=== PATIENT | male | born 1965 | race Caucasian/White ===

== ENCOUNTER 2018-07-23 09:15 | Emergency (ER) | payer MEDICAID ==
[~2018-07-23] VITALS: Ht 185.4 cm; Wt 81.6 kg
[2018-07-23 09:30] VITALS: BP 148/81
== END 2018-07-23 11:06 | disposition home or self-care (01) ==
LOC: ER 09:18
DX: S20.212A Contusion of left front wall of thorax, initial encounter (principal); I10 Essential (primary) hypertension; F17.200 Nicotine dependence, unspecified, uncomplicated; Z90.49 Acquired absence of other specified parts of digestive tract; W11.XXXA Fall on and from ladder, initial encounter; Y93.89 Activity, other specified; Y92.89 Other specified places as the place of occurrence of the external cause; Y99.8 Other external cause status
CPT/HCPCS: 71100; 99283; A4606; Z7610

== ENCOUNTER 2018-09-21 12:59 | Emergency (ER) | payer MEDICAID ==
[~2018-09-21] VITALS: Ht 188 cm; Wt 83.5 kg
[2018-09-21 13:05] VITALS: BP 119/76
[2018-09-21] MEDS ORDERED: LIDOCAINE 1% INJ 50 ML MDV IJ ONE (13:28)
--- NOTE | 2018-09-21 15:15 | NUR ---
DISCHARGE INSTRUCTIONS GIVEN AND PATIENT VERBALIZED UNDERSTANDING. PRESCRIPTIONS GIVEN TO PATIENT. PATIENT LEFT ER AMBULATORY IN STABLE CONDITION. NO ACUTE DISTRESS.
== END 2018-09-21 15:15 | disposition home or self-care (01) ==
LOC: ER 12:59
DX: S61.012D Laceration without foreign body of left thumb without damage to nail, subsequent encounter (principal); I10 Essential (primary) hypertension; F17.200 Nicotine dependence, unspecified, uncomplicated; Z90.49 Acquired absence of other specified parts of digestive tract; X58.XXXD Exposure to other specified factors, subsequent encounter
CPT/HCPCS: 64450; 99284; A6402 ×2; J3490

== ENCOUNTER 2018-12-20 12:14 | Emergency (ER) | payer MEDICAID ==
[~2018-12-20] VITALS: Ht 188 cm; Wt 82.1 kg
[2018-12-20 12:14] VITALS: BP 149/85
[2018-12-20] MEDS ORDERED: IBUPROFEN 600 MG TABLET PO ONE ×2 (12:58→13:00)
== END 2018-12-20 15:10 | disposition home or self-care (01) ==
LOC: ER 12:17
DX: S20.212A Contusion of left front wall of thorax, initial encounter (principal); M25.522 Pain in left elbow; M25.532 Pain in left wrist; I10 Essential (primary) hypertension; Z90.49 Acquired absence of other specified parts of digestive tract; F17.200 Nicotine dependence, unspecified, uncomplicated; W11.XXXA Fall on and from ladder, initial encounter; Y93.89 Activity, other specified; Y92.89 Other specified places as the place of occurrence of the external cause; Y99.8 Other external cause status
CPT/HCPCS: 71100-TC; 71250-TC; 73110